=== PATIENT | male | born 1985 | race Two or more races ===

== ENCOUNTER 2023-09-21 02:29 | Emergency (ER) | payer MEDICAID ==
[~2023-09-21] VITALS: Ht 175.3 cm; Wt 95.3 kg
[2023-09-21] MEDS ORDERED: ACETAMINOPHEN ES 500 MG TABLET ONE (02:58)
[2023-09-21] MEDS ORDERED: ACETAMINOPHEN 325 MG TABLET PO ONE (03:00)
[2023-09-21] MEDS ORDERED: HYDROCODONE/APAP 10/325MG TABLET ONE (04:28)
[2023-09-21] MEDS ORDERED: HYDROCODONE/APAP 10/325MG TABLET PO ONE (04:30)
[2023-09-21] MEDS ORDERED: TYL2T PO (05:03)
[2023-09-21] MEDS ORDERED: IBUP-1953 PO (05:03)
[2023-09-21 05:09] VITALS: BP 121/84; TEMP 98; O2SAT 99
== END 2023-09-21 05:18 | disposition home or self-care (01) ==
LOC: ER 02:38
DX: S06.0XAA Concussion with loss of consciousness status unknown, initial encounter (principal); S93.401A Sprain of unspecified ligament of right ankle, initial encounter; S40.011A Contusion of right shoulder, initial encounter; V89.2XXA Person injured in unspecified motor-vehicle accident, traffic, initial encounter; Y93.89 Activity, other specified; Y92.89 Other specified places as the place of occurrence of the external cause; Y99.8 Other external cause status
CPT/HCPCS: 70450-TC; 73030-TC; 73610-TC; 73630-TC